=== PATIENT | male | born 1980 | race Caucasian/White ===

== ENCOUNTER 2022-05-11 13:29 | Outpatient (CLI) | payer BC | END 2022-05-11 13:30 | disposition home or self-care (01) | LOC: CSHCT 13:29 | PROVIDERS: ATTEND Family Medicine Sports Medicine | DX: R10.32 Left lower quadrant pain (principal); K76.9 Liver disease, unspecified; R91.8 Other nonspecific abnormal finding of lung field; K42.9 Umbilical hernia without obstruction or gangrene | CPT/HCPCS: 74177 ==

== ENCOUNTER 2022-11-03 10:07 | Outpatient (CLI) | payer BC ==
[~2022-11-03 10:07] MED LIST: Iopamidol 300 61% 100 ML VIAL FS ONE
== END 2022-11-03 10:08 | disposition home or self-care (01) ==
LOC: CSHCT 10:07
PROVIDERS: ATTEND Family Medicine Sports Medicine
DX: R91.8 Other nonspecific abnormal finding of lung field (principal); K76.9 Liver disease, unspecified; K76.0 Fatty (change of) liver, not elsewhere classified
CPT/HCPCS: 74178